=== PATIENT | female | born 1965 | race Caucasian/White ===

== ENCOUNTER → 2021-08-09 | Day surgery (SDC) | payer BC | END | disposition home or self-care (01) | LOC: JRADIR 10:48 | PROVIDERS: ATTEND Internal Medicine Endocrinology, Diabetes & Metabolism | PROC: 0G9K3ZX Drainage of Thyroid Gland, Percutaneous Approach, Diagnostic (ICD-10-PCS; principal; 2021-08-09) | DX: E04.1 Nontoxic single thyroid nodule (principal) | CPT/HCPCS: 10005; 76942; 88173; 88305-TC ==

== ENCOUNTER 2021-12-14 04:18 | Day surgery (SDC) | payer BC ==
[2021-12-08 12:15] VITALS: BMI 29.2
[2021-12-14] MEDS ORDERED: IBUPROFEN 400 MG TABLET (FP) PO PRN (12:24)
[2021-12-14] MEDS ORDERED: ACETAMINOPHEN 325 MG TABLET (FP) PO PRN (12:24)
[2021-12-14] MEDS ORDERED: MIDAZOLAM HCL 2 MG/2 ML SINGLE DOSE VIAL ONE (13:31)
[2021-12-14] MEDS ORDERED: FENTANYL CITRATE/PF 50 MCG/ML VIAL ONE (13:39)
[2021-12-14] MEDS ORDERED: PROPOFOL 20 ML ONE (13:55)
[2021-12-14 16:35] VITALS: BP 110/60; PULSE 68; TEMP 97.7
== END 2021-12-14 16:30 | disposition home or self-care (01) ==
LOC: JASU-SURG 04:18
PROVIDERS: ATTEND Obstetrics & Gynecology
PROC: 0UDB7ZZ Extraction of Endometrium, Via Natural or Artificial Opening (ICD-10-PCS; principal; 2021-12-14 13:00)
PROC: 0UJD8ZZ Inspection of Uterus and Cervix, Via Natural or Artificial Opening Endoscopic (ICD-10-PCS; 2021-12-14 13:00)
DX: N95.0 Postmenopausal bleeding (principal)
CPT/HCPCS: 88305-TC; 94760

== ENCOUNTER 2022-11-10 20:17 | Emergency (ER) | payer BC ==
[2022-11-10 20:27] VITALS: BP 109/63; PULSE 69; RESP 18; TEMP 98.2; BMI 28.2
[2022-11-10] MEDS ORDERED: KETOROLAC TROMETHAMINE 30 MG/1 ML VIAL IM ONE (21:44)
[2022-11-10] MEDS ORDERED: KETOROLAC TROMETHAMINE 30 MG/1 ML VIAL ONE (22:36)
== END 2022-11-11 02:10 | disposition home or self-care (01) ==
LOC: JER 20:17
PROC: 3E0233Z Introduction of Anti-inflammatory into Muscle, Percutaneous Approach (ICD-10-PCS; principal; 2022-11-10)
DX: M25.562 Pain in left knee (principal)
CPT/HCPCS: 73562-TC-LT-FY; 93971-TC; 99284-25

== ENCOUNTER 2022-11-13 04:22 | Day surgery (SDC) | payer BC ==
[2022-11-09 12:05] VITALS: BMI 28.2
[2022-11-13] MEDS ORDERED: LIDOCAINE HCL/PF 2% SDV 5ML VIAL ONE (09:53)
[2022-11-13] MEDS ORDERED: MIDAZOLAM HCL 2 MG/2 ML SINGLE DOSE VIAL ONE ×2 (09:54→10:36)
[2022-11-13] MEDS ORDERED: PROPOFOL 40 ML ONE (09:54)
[2022-11-13] MEDS ORDERED: SUCCINYLCHOLINE CHLORIDE 200 MG/10 ML SYRINGE ONE (09:56)
[2022-11-13] MEDS ORDERED: IBUPROFEN 400 MG TABLET (FP) PO PRN (10:22)
[2022-11-13] MEDS ORDERED: ACETAMINOPHEN 325 MG TABLET (FP) PO PRN (10:22)
[2022-11-13] MEDS ORDERED: PROPOFOL 20 ML ONE (10:36)
[2022-11-13] MEDS ORDERED: KETOROLAC TROMETHAMINE 30 MG/1 ML VIAL ONE (10:56)
[2022-11-13] MEDS ORDERED: DEXAMETHASONE SOD PHOSPHATE 4 MG/1 ML VIAL ONE (10:56)
[2022-11-13] MEDS ORDERED: ONDANSETRON 4 MG/2 ML VIAL ONE (10:56)
[2022-11-13] MEDS ORDERED: GLYCOPYRROLATE 0.2 MG/1 ML VIAL ONE (11:18)
[2022-11-13 12:42] VITALS: BP 107/58; PULSE 54; RESP 16; TEMP 96.6
[2022-11-13] MEDS ORDERED: ONDANSETRON 4 MG/2 ML VIAL IVPUSH PRN (14:31)
[2022-11-13] MEDS ORDERED: PROMETHAZINE HCL 25 MG/1 ML VIAL IVPB PRN (14:31)
[2022-11-13] MEDS ORDERED: LACTATED RINGERS SOLUTION 1,000 ML IV SCH (14:45)
== END 2022-11-13 13:45 | disposition home or self-care (01) ==
LOC: JASU-SURG 04:22
PROVIDERS: ATTEND Obstetrics & Gynecology
PROC: 0UJD8ZZ Inspection of Uterus and Cervix, Via Natural or Artificial Opening Endoscopic (ICD-10-PCS; principal; 2022-11-13 10:00)
DX: N95.0 Postmenopausal bleeding (principal)
CPT/HCPCS: 88305-TC; 94760

== ENCOUNTER 2023-05-07 04:21 | Day surgery (SDC) | payer BC ==
[2023-05-03 11:00] VITALS: BMI 27.3
[2023-05-07] MEDS ORDERED: PHENAZOPYRIDINE HCL 100 MG TABLET (FP) PO ONE (06:30)
[2023-05-07] MEDS ORDERED: GABAPENTIN 300 MG CAPSULE PO ONE (06:30)
[2023-05-07] MEDS ORDERED: CEFAZOLIN 2 GM in DEXTROSE 5%-WATER - 100 ML IVPB ONE (06:30)
[2023-05-07] MEDS ORDERED: ACETAMINOPHEN 1000 MG/100 ML BAG IVPB ONE (06:30)
[2023-05-07] MEDS ORDERED: ceFAZolin SODIUM 1 GM VIAL ONE (06:50)
[2023-05-07] MEDS ORDERED: ROPIVACAINE HCL 0.5% 30ML VIAL ONE (07:17)
[2023-05-07] MEDS ORDERED: BUPIVACAINE HCL/PF 0.5% (5MG/ML) 10 ML VIAL ONE (07:17)
[2023-05-07] MEDS ORDERED: MIDAZOLAM HCL 2 MG/2 ML SINGLE DOSE VIAL ONE (07:19)
[2023-05-07] MEDS ORDERED: PROPOFOL 20 ML ONE ×3 (07:19→09:29)
[2023-05-07] MEDS ORDERED: ROCURONIUM BROMIDE 50 MG/5 ML SYRINGE ONE (07:19)
[2023-05-07] MEDS ORDERED: LIDOCAINE HCL/PF 2% SDV 5ML VIAL ONE (07:45)
[2023-05-07] MEDS ORDERED: ceFAZolin SODIUM 1 GM VIAL IVPB ONE (07:58)
[2023-05-07] MEDS ORDERED: ONDANSETRON 4 MG/2 ML VIAL ONE (08:02)
[2023-05-07] MEDS ORDERED: DEXAMETHASONE SOD PHOSPHATE 4 MG/1 ML VIAL ONE (08:02)
[2023-05-07] MEDS ORDERED: METOCLOPRAMIDE HCL INJECTION 10 MG/2 ML VIAL ONE (08:02)
[2023-05-07] MEDS ORDERED: SUGAMMADEX SODIUM 200 MG/2 ML VIAL ONE (09:42)
[2023-05-07] MEDS ORDERED: ONDANSETRON 4 MG/2 ML VIAL IVPUSH PRN ×2 (10:03→10:17)
[2023-05-07] MEDS ORDERED: PROMETHAZINE HCL 25 MG/1 ML VIAL IVPB PRN (10:03)
[2023-05-07] MEDS: LACTATED RINGERS SOLUTION 1,000 ML IV SCH (10:15)
[2023-05-07] MEDS ORDERED: DOCUSATE SODIUM 100 MG CAPSULE (FP) PO PRN (10:17)
[2023-05-07] MEDS ORDERED: SIMETHICONE 80 MG TAB.CHEW (FP) PO PRN (10:17)
[2023-05-07] MEDS: IBUPROFEN 800 MG/8 ML IJ IVPB SCH ×2 (10:55→18:47)
[2023-05-07] MEDS ORDERED: IBUPROFEN 800 MG/8 ML IJ IVPB ONE (10:55)
[2023-05-07 14:04] VITALS: RESP 18
[2023-05-07] MEDS ORDERED: BISACODYL 5 MG TABLET.DR (FP) PO ONE (14:30)
[2023-05-07] MEDS ORDERED: TRANEXAMIC ACID 1000 MG/10 ML VIAL IVPUSH ONE (14:45)
[2023-05-07] MEDS ORDERED: traMADol HCL 50 MG TABLET PO PRN (14:58)
[2023-05-07] MEDS: CEFAZOLIN 1 GM in DEXTROSE 5%-WATER - 50 ML IVPB SCH (16:30)
[2023-05-07] MEDS: ACETAMINOPHEN 1000 MG/100 ML BAG IVPB SCH ×2 (16:31→21:08)
[2023-05-07 19:15] LABS: HEMATOCRIT 35.9 % (32.4-45.2); HEMOGLOBIN 12.4 GM/dL (10.7-15.3); MCHC 34.7 g/dl (32.0-36.0); MEAN CELL VOLUME 92.4 fl (80-96); MEAN PLT VOLUME 8.6 fl (7.5-11.1); PLATELET COUNT 225 10^3/uL (134-434); RBC 3.88 M/mm3 (3.60-5.2); RDW 12.8 % (11.6-15.6); WHITE BLOOD COUNT 4.8 K/mm3 (4.0-10.0)
[2023-05-07 19:37] LABS: POTASSIUM 4.2 mmol/L (3.5-5.1)
[2023-05-07 19:40] LABS: CALCIUM 8.9 mg/dL (8.5-10.1)
[2023-05-07 19:41] LABS: BLOOD UREA NITROGEN 10.8 mg/dL (7-18)
[2023-05-07 19:44] LABS: CREATININE 0.9 mg/dL (0.55-1.3)
[2023-05-08] MEDS: CEFAZOLIN 1 GM in DEXTROSE 5%-WATER - 50 ML IVPB SCH (00:06)
[2023-05-08] MEDS: LACTATED RINGERS SOLUTION 1,000 ML IV SCH (01:00)
[2023-05-08] MEDS: IBUPROFEN 800 MG/8 ML IJ IVPB SCH (01:45)
[2023-05-08] MEDS: ACETAMINOPHEN 1000 MG/100 ML BAG IVPB SCH (02:58)
[2023-05-08 08:20] LABS: HEMATOCRIT 33.5 % (32.4-45.2); HEMOGLOBIN 11.2 GM/dL (10.7-15.3); MCH 31.5 pg (25.7-33.7); MCHC 33.4 g/dl (32.0-36.0); MEAN CELL VOLUME 94.3 fl (80-96); MEAN PLT VOLUME 8.7 fl (7.5-11.1); PLATELET COUNT 199 10^3/uL (134-434); RBC 3.55 M/mm3 (3.60-5.2); RDW 12.8 % (11.6-15.6); WHITE BLOOD COUNT 5.4 K/mm3 (4.0-10.0)
[2023-05-08 08:34] LABS: POTASSIUM 3.8 mmol/L (3.5-5.1)
[2023-05-08 08:38] LABS: CALCIUM 8.1 mg/dL (8.5-10.1)
[2023-05-08 08:41] LABS: CREATININE 0.7 mg/dL (0.55-1.3)
[2023-05-08 08:43] VITALS: BP 112/54; PULSE 75; TEMP 98.7
[2023-05-08] MEDS ORDERED: ACETAMINOPHEN 500 MG TABLET (FP) PO SCH (09:00)
[2023-05-08] MEDS ORDERED: METHIMAZOLE 5 MG TABLET PO SCH (10:00)
[2023-05-08] MEDS ORDERED: ENOXAPARIN NA (PORCINE) 40 MG/0.4 ML DISP.SYRIN SQ SCH (10:00)
[2023-05-08] MEDS ORDERED: IBUPROFEN 600 MG TABLET (FP) PO SCH (10:30)
== END 2023-05-08 11:40 | disposition home or self-care (01) ==
LOC: JASUSAT 04:21 → J3W 08:50 → JASUSAT 05-08 11:40
PROVIDERS: ATTEND Obstetrics & Gynecology
PROC: 8E0W4CZ Robotic Assisted Procedure of Trunk Region, Percutaneous Endoscopic Approach (ICD-10-PCS; 2023-05-07)
PROC: 0UT9FZZ Resection of Uterus, Via Natural or Artificial Opening With Percutaneous Endoscopic Assistance (ICD-10-PCS; principal; 2023-05-07 07:30)
PROC: 0UT7FZZ Resection of Bilateral Fallopian Tubes, Via Natural or Artificial Opening With Percutaneous Endoscopic Assistance (ICD-10-PCS; 2023-05-07 07:30)
DX: N95.0 Postmenopausal bleeding (principal); D25.9 Leiomyoma of uterus, unspecified
CPT/HCPCS: 58552; S2900; 36415; 80048; 85027; 86850; 86900; 86901; 88302-TC; 88307-TC; 94010; 94760

== ENCOUNTER → 2024-03-03 | Day surgery (SDC) | payer BC | END | disposition home or self-care (01) | LOC: JRADIR 10:39 | PROVIDERS: ATTEND Internal Medicine Endocrinology, Diabetes & Metabolism | PROC: 0G9G3ZX Drainage of Left Thyroid Gland Lobe, Percutaneous Approach, Diagnostic (ICD-10-PCS; principal; 2024-03-03) | DX: E04.1 Nontoxic single thyroid nodule (principal) | CPT/HCPCS: 10005; 76942; 88173; 88305-TC ==